=== PATIENT | female | born 1945 | race Caucasian/White ===

== ENCOUNTER 2018-03-18 11:14 | Inpatient (IN) | payer OTHER ==
[~2018-03-18] VITALS: Ht 170.2 cm; Wt 71.7 kg
--- NOTE | ~2018-03-18 | EKG ---
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
[2018-03-18 11:16] VITALS: BP 98/42
[2018-03-18] MEDS ORDERED: LIPITOR10 MG PO (11:23)
[2018-03-18] MEDS ORDERED: ARICEPT 5 MG TAB5 MG PO (11:23)
[2018-03-18] MEDS ORDERED: LISINOPRIL10 MG PO (11:23)
[2018-03-18] MEDS ORDERED: HYDROCHLOROTH12.5 M1 PO (11:23)
[2018-03-18] MEDS ORDERED: SYNTHROID100 MC1 PO (11:24)
[2018-03-18 11:31] LABS: ABSOLUTE NEUTROPHILS 6.2 thou/uL (1.4-8.2); BASOPHILS 0.6 % (0.0-2.0); EOSINOPHILS 0.9 % (0.0-3.0); HEMATOCRIT 40.5 % (37.0-47.0); HEMOGLOBIN 13.8 gm/dL (12.0-15.0); LYMPHOCYTES 16.7 % (24.0-44.0); MCH 31.3 pg (26.0-34.0); MCV 92.1 fL (80.0-100.0); MONOCYTES 8.8 % (1.0-8.0); PLATELET COUNT 134 thou/uL (150-400); RDW 12.3 % (10.5-14.5); WBC 8.5 thou/uL (4.0-11.0)
[2018-03-18 11:43] LABS: CREATININE 5.9 mg/dL (0.6-1.0); POTASSIUM 4.6 mmol/L (3.5-5.1)
[2018-03-18 11:49] LABS: ALBUMIN 3.5 g/dL (3.4-5.0); DIRECT BILIRUBIN 0.1 mg/dL (<0.1-0.3); TOTAL BILIRUBIN 0.5 mg/dL (<0.1-1.0); TOTAL PROTEIN 7.2 g/dL (6.4-8.2)
[2018-03-18 12:33] LABS: URINE BLOOD NEGATIVE (Negative); URINE CLARITY CLEAR; URINE COLOR YELLOW; URINE GLUCOSE-RANDOM* NEGATIVE (Negative); URINE KETONES TRACE (Negative); URINE LEUKOCYTES NEGATIVE (Negative); URINE NITRITE NEGATIVE (Negative); URINE PROTEIN (DIPSTICK) NEGATIVE (Negative); URINE SPECIFIC GRAVITY 1.025 (1.005-1.035); URINE UROBILINOGEN 0.2 E.U./dl (0.2-1.0)
[2018-03-18 12:36] LABS: ICTOTEST (BILI CONFIRMATORY) Negative (Negative); URINE BILIRUBIN NEGATIVE (Negative)
[2018-03-18 13:07] VITALS: BP 91/40
[2018-03-18 13:11] LABS: URINE CREATININE-RANDOM* 155.1 mg/dL
[2018-03-18 14:51] VITALS: BP 101/56
[2018-03-18 16:10] VITALS: BP 111/77
[2018-03-18 20:18] VITALS: BP 100/53
[2018-03-19 04:34] VITALS: BP 116/53
[2018-03-19 06:14] LABS: HEMATOCRIT 39.4 % (37.0-47.0); HEMOGLOBIN 13.5 gm/dL (12.0-15.0); MCH 31.4 pg (26.0-34.0); MCHC 34.3 g/dL (28.0-37.0); MCV 91.5 fL (80.0-100.0); RBC 4.3 mil/uL (4.20-5.00); RDW 12.3 % (10.5-14.5); WBC 5.9 thou/uL (4.0-11.0)
[2018-03-19 06:29] LABS: ALBUMIN 3.4 g/dL (3.4-5.0); POTASSIUM 4.5 mmol/L (3.5-5.1)
[2018-03-19 06:38] LABS: CREATININE 3.6 mg/dL (0.6-1.0)
[2018-03-19 07:50] VITALS: BP 103/59
[2018-03-19 21:22] VITALS: BP 97/60
[2018-03-20 05:22] VITALS: BP 116/56
[2018-03-20 06:43] LABS: HEMATOCRIT 36.9 % (37.0-47.0); HEMOGLOBIN 12.6 gm/dL (12.0-15.0); MCH 31.3 pg (26.0-34.0); MCHC 34.1 g/dL (28.0-37.0); MCV 91.6 fL (80.0-100.0); PLATELET COUNT 114 thou/uL (150-400); RBC 4.02 mil/uL (4.20-5.00); RDW 12.5 % (10.5-14.5); WBC 4.7 thou/uL (4.0-11.0)
[2018-03-20 07:00] LABS: CALCIUM 9.6 mg/dL (8.5-10.1); POTASSIUM 4.2 mmol/L (3.5-5.1)
[2018-03-20 07:08] LABS: CREATININE 2.3 mg/dL (0.6-1.0)
[2018-03-20 07:10] VITALS: BP 105/56
[2018-03-20 09:08] LABS: ABSOLUTE NEUTROPHILS 3.1 thou/uL (1.4-8.2)
[2018-03-20 09:09] LABS: LARGE PLATELETS MANY
[2018-03-20 11:09] VITALS: BP 153/79
[2018-03-20 15:30] VITALS: BP 93/52
[2018-03-20 20:00] VITALS: BP 108/76
[2018-03-21 06:13] VITALS: BP 94/28
[2018-03-21 06:18] LABS: CALCIUM 9.1 mg/dL (8.5-10.1); CREATININE 1.6 mg/dL (0.6-1.0); POTASSIUM 3.9 mmol/L (3.5-5.1)
[2018-03-21 06:58] VITALS: BP 101/46
[2018-03-21 11:09] VITALS: BP 101/46
[2018-03-21 20:04] VITALS: BP 118/66
[2018-03-22 00:46] VITALS: BP 107/58
[2018-03-22 03:35] VITALS: BP 100/57
[2018-03-22 07:18] VITALS: BP 109/69
[2018-03-22 11:50] LABS: CALCIUM 9.4 mg/dL (8.5-10.1); CREATININE 1.4 mg/dL (0.6-1.0); POTASSIUM 3.3 mmol/L (3.5-5.1)
[2018-03-22 15:15] VITALS: BP 102/39
[2018-03-22 19:50] VITALS: BP 143/82
[2018-03-23 05:22] VITALS: BP 107/69
== END 2018-03-23 12:05 | DRG 682 ==
LOC: ER 11:14 → EROBS 12:03 → SICU 12:03 → 4E 12:03 → SICU 03-21 12:36 → 4E 03-21 23:09 → ENTRNSPT 03-23 11:49 → EDTRNSPTSTS 03-23 11:50 → 4E 03-23 12:05
PROVIDERS: Emergency Medicine; Hospitalist; Internal Medicine
DX: N17.9 Acute kidney failure, unspecified (principal); K85.90 Acute pancreatitis without necrosis or infection, unspecified; G93.41 Metabolic encephalopathy; F03.90 Unspecified dementia, unspecified severity, without behavioral disturbance, psychotic disturbance, mood disturbance, and anxiety; I95.9 Hypotension, unspecified; E86.0 Dehydration; Z79.899 Other long term (current) drug therapy; I10 Essential (primary) hypertension; E78.00 Pure hypercholesterolemia, unspecified; E03.9 Hypothyroidism, unspecified; R19.7 Diarrhea, unspecified
CPT/HCPCS: 10084; 10783